=== PATIENT | female | born 1950 | race Two or more races ===

== ENCOUNTER → 2020-12-21 | Emergency (ER) | payer OTHER ==
[~2020-12-21] VITALS: Ht 152.4 cm; Wt 63.5 kg
[~2020-12-21] MED LIST: CIPRO500 MG PO; FLAGYL500MG PO; PROTONIX40 MG PO; TUSNEL C SYRUP473 ML; ZEBETA5 MG
== END | disposition home or self-care (01) ==
LOC: ER 21:52
DX: S13.4XXA Sprain of ligaments of cervical spine, initial encounter (principal); V49.9XXA Car occupant (driver) (passenger) injured in unspecified traffic accident, initial encounter; Y93.89 Activity, other specified; Y92.488 Other paved roadways as the place of occurrence of the external cause; Y99.8 Other external cause status

== ENCOUNTER 2024-01-09 14:45 | Emergency (ER) | payer OTHER ==
[~2024-01-09] VITALS: Ht 144.8 cm; Wt 63.5 kg
[2024-01-09] MEDS ORDERED: CLINDAMYCIN PHOSPHATE 150 MG/ML (300mg) ONE (15:44)
[2024-01-09] MEDS ORDERED: TETANUS & DIPHTHERIA TOX,ADULT 0.5 ML VIAL IM ONE (15:45)
[2024-01-09] MEDS ORDERED: KETOROLAC TROMETHAMINE 30 MG VIAL ONE (15:45)
[2024-01-09] MEDS ORDERED: KETOROLAC TROMETHAMINE 30 MG VIAL IM ONE (15:45)
[2024-01-09] MEDS ORDERED: CLINDAMYCIN PHOSPHATE 150 MG/ML (300mg) IM ONE (15:45)
[2024-01-09] MEDS ORDERED: TETANUS DIPHTHERIA TOX. ADSOR 5 ML VIAL IM ONE (15:45)
[2024-01-09] MEDS ORDERED: BACITRACIN-NEOMYCIN-POLYMYXIN 0.9 GM PACKET TOP ONE (15:45)
[2024-01-09] MEDS ORDERED: PEPCID AC20 MG PO ×2 (16:02→16:03)
[2024-01-09] MEDS ORDERED: MONODOX100 MG PO (16:02)
== END 2024-01-09 16:17 ==
LOC: ER 14:47
DX: S51.851A Open bite of right forearm, initial encounter (principal); S51.852A Open bite of left forearm, initial encounter; W54.0XXA Bitten by dog, initial encounter; Y93.89 Activity, other specified; Y92.89 Other specified places as the place of occurrence of the external cause; Y99.8 Other external cause status; I10 Essential (primary) hypertension; Z88.0 Allergy status to penicillin
CPT/HCPCS: 90471; 90714; 96372; 99282; J1670; J1885; J3490

== ENCOUNTER 2024-03-27 11:10 | Emergency (ER) | payer OTHER ==
[~2024-03-27] VITALS: Ht 144.8 cm; Wt 64.9 kg
[~2024-03-27 11:10] MED LIST changes: +MONODOX100 MG PO; +PEPCID AC20 MG PO
[2024-03-27] MEDS ORDERED: MONTELUKAST SOD10 MG PO (11:30)
[2024-03-27] MEDS ORDERED: ST. JOSEPH ASPI81 M2 PO (11:31)
[2024-03-27] MEDS ORDERED: ORPHENADRINE CITRATE 30 MG/ML AMPUL IM STA (12:34)
[2024-03-27] MEDS ORDERED: KETOROLAC TROMETHAMINE 60 MG VIAL IM STA (12:35)
== END 2024-03-27 15:58 | disposition home or self-care (01) ==
LOC: ER 11:11
DX: M50.20 Other cervical disc displacement, unspecified cervical region (principal); M13.831 Other specified arthritis, right wrist; I10 Essential (primary) hypertension; Z88.0 Allergy status to penicillin